=== PATIENT | female | born 1960 | race Two or more races ===

== ENCOUNTER 2017-09-23 07:13 | Outpatient (CLI) | payer OTHER | END 2017-09-23 08:57 | disposition HB | LOC: LAB 07:13 → MAMO-SONO 07:45 → LAB 08:57 | DX: D64.89 Other specified anemias (principal); E11.9 Type 2 diabetes mellitus without complications; E78.2 Mixed hyperlipidemia; K76.89 Other specified diseases of liver; E03.8 Other specified hypothyroidism; E55.9 Vitamin D deficiency, unspecified; R29.898 Other symptoms and signs involving the musculoskeletal system ==

== ENCOUNTER 2017-09-23 08:44 | Outpatient (CLI) | payer OTHER | END 2017-09-23 08:54 | disposition home or self-care (01) | LOC: MAMO-SONO 08:44 | DX: Z12.31 Encounter for screening mammogram for malignant neoplasm of breast (principal); N63.11 Unspecified lump in the right breast, upper outer quadrant ==

== ENCOUNTER 2017-09-26 11:59 | Outpatient (CLI) | payer OTHER | END 2017-09-26 17:00 | disposition home or self-care (01) | LOC: MRI 11:59 | DX: M25.561 Pain in right knee (principal) | CPT/HCPCS: 73721 ==

== ENCOUNTER → 2017-12-22 08:29 | Outpatient (CLI) | payer OTHER | END | disposition home or self-care (01) | LOC: LAB 08:29 | DX: D68.8 Other specified coagulation defects (principal); Z01.812 Encounter for preprocedural laboratory examination; Z13.6 Encounter for screening for cardiovascular disorders; E78.00 Pure hypercholesterolemia, unspecified; E04.8 Other specified nontoxic goiter ==

== ENCOUNTER 2018-04-27 08:47 | Outpatient (CLI) | payer OTHER | END 2018-04-27 09:10 | disposition home or self-care (01) | LOC: LAB 08:47 | DX: D64.89 Other specified anemias (principal); E11.9 Type 2 diabetes mellitus without complications; E78.49 Other hyperlipidemia; K76.89 Other specified diseases of liver; E03.8 Other specified hypothyroidism; E55.9 Vitamin D deficiency, unspecified; R29.898 Other symptoms and signs involving the musculoskeletal system ==

== ENCOUNTER 2018-04-27 11:07 | Outpatient (CLI) | payer OTHER | END 2018-04-27 11:53 | disposition home or self-care (01) | LOC: NUCLEAR 11:07 | DX: M81.0 Age-related osteoporosis without current pathological fracture (principal) ==

== ENCOUNTER 2018-08-19 07:11 | Outpatient (CLI) | payer OTHER | END 2018-08-19 08:24 | disposition home or self-care (01) | LOC: TOM 07:11 | DX: D48.1 Neoplasm of uncertain behavior of connective and other soft tissue (principal) ==

== ENCOUNTER 2019-02-04 08:16 | Outpatient (CLI) | payer OTHER | END 2019-02-04 09:05 | disposition home or self-care (01) | LOC: LAB 08:16 | DX: D64.89 Other specified anemias (principal); E11.9 Type 2 diabetes mellitus without complications; E78.2 Mixed hyperlipidemia; E03.8 Other specified hypothyroidism ==

== ENCOUNTER 2019-04-05 06:39 | Outpatient (CLI) | payer OTHER | END 2019-04-05 07:40 | disposition home or self-care (01) | LOC: LAB 06:39 | DX: E03.8 Other specified hypothyroidism (principal); E07.1 Dyshormogenetic goiter ==

== ENCOUNTER → 2019-04-08 | Outpatient (CLI) | payer OTHER | END | disposition home or self-care (01) | LOC: MAMO-SONO 07:34 | DX: Z12.31 Encounter for screening mammogram for malignant neoplasm of breast (principal); Z87.898 Personal history of other specified conditions ==

== ENCOUNTER 2019-04-16 08:15 | Outpatient (CLI) | payer OTHER | END 2019-04-16 08:29 | disposition home or self-care (01) | LOC: LAB 08:15 | DX: D64.89 Other specified anemias (principal); E03.8 Other specified hypothyroidism; Z12.11 Encounter for screening for malignant neoplasm of colon; N95.1 Menopausal and female climacteric states; I10 Essential (primary) hypertension; C51.8 Malignant neoplasm of overlapping sites of vulva; N30.00 Acute cystitis without hematuria; A64 Unspecified sexually transmitted disease; R97.8 Other abnormal tumor markers; R79.89 Other specified abnormal findings of blood chemistry; E55.9 Vitamin D deficiency, unspecified ==

== ENCOUNTER → 2019-05-04 08:00 | Outpatient (CLI) | payer OTHER | END | disposition home or self-care (01) | LOC: EKG 08:00 | DX: R07.89 Other chest pain (principal) ==

== ENCOUNTER → 2019-06-08 17:11 | Outpatient (CLI) | payer OTHER | END | disposition home or self-care (01) | LOC: LAB 17:11 | DX: R10.10 Upper abdominal pain, unspecified (principal) ==

== ENCOUNTER 2020-04-17 08:09 | Outpatient (CLI) | payer OTHER | END 2020-04-17 08:39 | disposition home or self-care (01) | LOC: LAB 08:09 | PROVIDERS: ATTEND Internal Medicine Sports Medicine | DX: D64.89 Other specified anemias (principal); E11.9 Type 2 diabetes mellitus without complications; E78.2 Mixed hyperlipidemia; I10 Essential (primary) hypertension; E03.8 Other specified hypothyroidism; N30.00 Acute cystitis without hematuria; Z12.11 Encounter for screening for malignant neoplasm of colon; E83.51 Hypocalcemia; N95.8 Other specified menopausal and perimenopausal disorders ==

== ENCOUNTER → 2020-04-18 08:53 | Outpatient (CLI) | payer OTHER | END | disposition home or self-care (01) | LOC: LAB 08:53 | PROVIDERS: ATTEND Obstetrics & Gynecology | DX: E03.8 Other specified hypothyroidism (principal); I10 Essential (primary) hypertension; E78.49 Other hyperlipidemia; N30.00 Acute cystitis without hematuria; E83.51 Hypocalcemia; Z12.11 Encounter for screening for malignant neoplasm of colon; N95.8 Other specified menopausal and perimenopausal disorders ==

== ENCOUNTER → 2020-10-02 07:36 | Outpatient (CLI) | payer OTHER ==
[~2020-10-02 07:36] MED LIST: SYNTHROID150 MCG; [UNRECOGNIZED DRUG - OTHER] PO
== END | disposition home or self-care (01) ==
LOC: LAB 07:36
PROVIDERS: ATTEND Internal Medicine Sports Medicine
DX: D64.89 Other specified anemias (principal); E78.2 Mixed hyperlipidemia; E11.9 Type 2 diabetes mellitus without complications; I10 Essential (primary) hypertension; E03.8 Other specified hypothyroidism

== ENCOUNTER 2020-10-02 11:33 | Outpatient (CLI) | payer OTHER | END 2020-10-02 11:55 | disposition home or self-care (01) | LOC: MAMO-SONO 11:33 | PROVIDERS: ATTEND Obstetrics & Gynecology | DX: N60.11 Diffuse cystic mastopathy of right breast (principal); N60.12 Diffuse cystic mastopathy of left breast ==

== ENCOUNTER 2020-10-02 12:48 | Outpatient (CLI) | payer OTHER | END 2020-10-02 12:50 | disposition home or self-care (01) | LOC: NUCLEAR 12:48 | PROVIDERS: ATTEND Obstetrics & Gynecology | DX: M81.0 Age-related osteoporosis without current pathological fracture (principal) ==

== ENCOUNTER 2020-10-05 10:39 | Emergency (ER) | payer OTHER ==
[~2020-10-05] VITALS: Ht 170.2 cm; Wt 79.4 kg
[2020-10-05] MEDS ORDERED: SYNTHROID150 MCG (10:50)
[2020-10-05] MEDS ORDERED: [UNRECOGNIZED DRUG - OTHER] PO (10:53)
== END 2020-10-05 16:14 | disposition home or self-care (01) ==
LOC: ER 10:39 → CPU-OBS 11:07 → ER 16:14
DX: R07.89 Other chest pain (principal); R42 Dizziness and giddiness
CPT/HCPCS: G0378; G0379; 70450; 93005

== ENCOUNTER 2021-03-19 08:44 | Outpatient (CLI) | payer OTHER | END 2021-03-19 08:51 | disposition home or self-care (01) | LOC: LAB 08:44 | PROVIDERS: ATTEND Internal Medicine Sports Medicine | DX: D64.89 Other specified anemias (principal); E11.9 Type 2 diabetes mellitus without complications; E78.2 Mixed hyperlipidemia; I10 Essential (primary) hypertension; E03.8 Other specified hypothyroidism ==

== ENCOUNTER 2021-10-01 07:56 | Outpatient (CLI) | payer OTHER | END 2021-10-01 08:06 | disposition home or self-care (01) | LOC: LAB 07:56 | PROVIDERS: ATTEND Internal Medicine Sports Medicine | DX: D64.9 Anemia, unspecified (principal); E11.9 Type 2 diabetes mellitus without complications; E78.2 Mixed hyperlipidemia; I10 Essential (primary) hypertension; E03.8 Other specified hypothyroidism ==

== ENCOUNTER 2022-07-22 08:39 | Outpatient (CLI) | payer OTHER | END 2022-07-22 08:49 | disposition home or self-care (01) | LOC: SONOGRAMA 08:39 | PROVIDERS: ATTEND Specialist | DX: R22.2 Localized swelling, mass and lump, trunk (principal) ==

== ENCOUNTER 2023-07-07 08:51 | Outpatient (CLI) | payer OTHER ==
[2023-07-07 09:57] LABS: PH,URINE 5.5 (5.0-8.0); URINE APPEARANCE Clear; URINE BILIRRUBIN Negative (NEGATIVE); URINE BLOOD Negative; URINE COLOR Yellow; URINE GLUCOSE Negative (NEGATIVE); URINE LEUKOCYTE Negative; URINE NITRATE Negative; URINE PROTEIN Negative (NEGATIVE)
[2023-07-07 09:59] LABS: URINE BACTERIA 18.8 uL (0.0-1933); URINE RBC 11.4 uL (0.0-20.8)
[2023-07-07 10:05] LABS: URINE WBC 0.6 uL (0.0-23.2)
[2023-07-07 10:13] LABS: HEMATOCRIT 36.9 % (36.0-45.00); HEMOGLOBIN 12.6 g/dL (12.0-15.00); MEAN CELL VOLUME 89.5 fL (80.00-100.00); MEAN CORPUSCULAR HEMOGLOBIN 30.6 pg (27.00-32.0); MEAN CORPUSCULAR HGB CONC 34.2 g/dl (32.0-36.0); PLATELET COUNT 197 K/uL (150-450); RED BLOOD COUNT 4.12 M/uL (4.00-6.00); RED CELL DISTRIBUTION WIDTH 13.7 % (11.5-14.5)
[2023-07-07 11:03] LABS: BILIRUBIN TOTAL 0.89 mg/dL (0.3-1.2); CALCIUM 9.1 mg/dL (8.5-10.1); CHOL HDL RATIO 4.3 (0-5.0); CREATININE SERUM 0.72 mg/dL (0.55-1.02); GFR 81.55; GLOBULINA 2.8 G/DL (2.4-3.5); POTASSIUM 4.38 mEq/L (3.5-5.1); TOTAL PROTEIN 6.8 gm/dL (6.4-8.2)
[2023-07-07 11:24] LABS: TSH 12.8 uIU/mL (0.358-3.74)
[2023-07-07 11:49] LABS: T3 TOTAL 0.858 ng/ml (0.846-2.02); VITAMIN D3 25 HYDROXY 56.61 ng/ml (30-120)
== END 2023-07-07 09:10 | disposition home or self-care (01) ==
LOC: LAB 08:51
PROVIDERS: ATTEND Specialist
DX: D64.9 Anemia, unspecified (principal); E78.2 Mixed hyperlipidemia; R73.09 Other abnormal glucose; N39.0 Urinary tract infection, site not specified; E11.69 Type 2 diabetes mellitus with other specified complication; Z12.11 Encounter for screening for malignant neoplasm of colon; E55.9 Vitamin D deficiency, unspecified; E03.8 Other specified hypothyroidism

== ENCOUNTER 2023-07-15 08:18 | Outpatient (CLI) | payer OTHER | END 2023-07-15 08:20 | disposition home or self-care (01) | LOC: NUCLEAR 08:18 | PROVIDERS: ATTEND Internal Medicine Sports Medicine | DX: R07.9 Chest pain, unspecified (principal); R00.2 Palpitations ==

== ENCOUNTER → 2024-03-15 06:48 | Outpatient (CLI) | payer OTHER ==
[2024-03-15 07:48] LABS: HEMATOCRIT 37.4 % (36.0-45.00); HEMOGLOBIN 12.9 g/dL (12.0-15.00); MEAN CELL VOLUME 89.9 fL (80.00-100.00); MEAN CORPUSCULAR HGB CONC 34.5 g/dl (32.0-36.0); PLATELET COUNT 211 K/uL (150-450); RED BLOOD COUNT 4.16 M/uL (4.00-6.00); RED CELL DISTRIBUTION WIDTH 12.8 % (11.5-14.5)
[2024-03-15 08:18] LABS: PH,URINE 5.5 (5.0-8.0); URINE APPEARANCE Clear; URINE BILIRRUBIN Negative (NEGATIVE); URINE BLOOD Negative; URINE COLOR Yellow; URINE GLUCOSE Negative (NEGATIVE); URINE KETONE Negative (NEGATIVE); URINE LEUKOCYTE Trace; URINE NITRATE Negative; URINE PROTEIN Negative (NEGATIVE); URINE UROBILINOGEN 0.2 E.U./dl
[2024-03-15 08:19] LABS: URINE BACTERIA 42.8 uL (0.0-1933); URINE EPITHELIAL CELLS 3.8 uL (0.0-38.8); URINE RBC 10.8 uL (0.0-20.8); URINE WBC 3.8 uL (0.0-23.2)
[2024-03-15 08:32] LABS: ALBUMIN 3.9 gm/dL (3.4-5.0); BILIRUBIN TOTAL 0.91 mg/dL (0.3-1.2); CHOL HDL RATIO 3.4 (0-5.0); CREATININE SERUM 0.63 mg/dL (0.55-1.02); GFR 94.84; GLOBULINA 2.8 G/DL (2.4-3.5); POTASSIUM 3.89 mEq/L (3.5-5.1); T4 FREE 1.06 NG/ML (0.76-1.46); TOTAL PROTEIN 6.7 gm/dL (6.4-8.2); TSH 0.458 uIU/mL (0.358-3.74)
== END | disposition home or self-care (01) ==
LOC: LAB 06:48
PROVIDERS: ATTEND Internal Medicine Sports Medicine
DX: E03.9 Hypothyroidism, unspecified (principal)

== ENCOUNTER 2024-07-05 08:35 | Outpatient (CLI) | payer OTHER ==
[2024-07-05 10:22] LABS: URINE APPEARANCE Clear; URINE BILIRRUBIN Negative (NEGATIVE); URINE BLOOD Negative; URINE COLOR Yellow; URINE GLUCOSE Negative (NEGATIVE); URINE KETONE Negative (NEGATIVE); URINE LEUKOCYTE Small; URINE NITRATE Negative; URINE PROTEIN Negative (NEGATIVE)
[2024-07-05 10:26] LABS: URINE BACTERIA 26.9 uL (0.0-1933); URINE EPITHELIAL CELLS 2.2 uL (0.0-38.8); URINE WBC 7.2 uL (0.0-23.2)
[2024-07-05 10:30] LABS: URINE CAST 0.14 uL (0.0-1.40)
[2024-07-05 10:43] LABS: HEMATOCRIT 34.8 % (36.0-45.00); HEMOGLOBIN 11.9 g/dL (12.0-15.00); MEAN CELL VOLUME 89.1 fL (80.00-100.00); MEAN CORPUSCULAR HEMOGLOBIN 30.5 pg (27.00-32.0); MEAN CORPUSCULAR HGB CONC 34.2 g/dl (32.0-36.0); PLATELET COUNT 187 K/uL (150-450); RED CELL DISTRIBUTION WIDTH 13.4 % (11.5-14.5)
[2024-07-05 11:32] LABS: ALBUMIN 3.6 gm/dL (3.4-5.0); BILIRUBIN TOTAL 0.72 mg/dL (0.3-1.2); CALCIUM 8.6 mg/dL (8.5-10.1); CHOL HDL RATIO 3.6 (0-5.0); CREATININE SERUM 0.56 mg/dL (0.55-1.02); GFR 108.64; GLOBULINA 2.9 G/DL (2.4-3.5); POTASSIUM 4.22 mEq/L (3.5-5.1); TOTAL PROTEIN 6.5 gm/dL (6.4-8.2); TSH 0.889 uIU/mL (0.358-3.74)
== END 2024-07-05 08:36 | disposition home or self-care (01) ==
LOC: LAB 08:35
PROVIDERS: ATTEND Internal Medicine
DX: E03.9 Hypothyroidism, unspecified (principal); E78.2 Mixed hyperlipidemia

== ENCOUNTER 2024-07-05 09:34 | Outpatient (CLI) | payer OTHER | END 2024-07-05 09:48 | disposition home or self-care (01) | LOC: RAD 09:34 | PROVIDERS: ATTEND Orthopaedic Surgery | DX: M17.11 Unilateral primary osteoarthritis, right knee (principal) ==

== ENCOUNTER 2025-02-07 06:17 | Outpatient (CLI) | payer OTHER ==
[2025-02-07 07:22] LABS: BASO % 0.5 % (0.1-1.2); EOS # 0.16 (0.04-0.54); EOS % 2.8 % (0.7-7.0); LYMPH # 1.63 (1.18-3.74); LYMPH % 28.1 % (19.3-53.1); MEAN PLATELET VOLUME 11.30 fl (9.4-12.4); MONO # 0.50 (0.24-0.82); MONO % 8.6 % (4.7-12.5); NEUT # 3.47 (1.56-6.13); NEUT % 59.8 % (34.0-71.1); RED CELL DISTRIBUTION WIDTH 13.0 % (11.6-14.4); URINE APPEARANCE Clear; URINE BILIRRUBIN Negative (NEGATIVE); URINE BLOOD Negative; URINE COLOR Yellow; URINE GLUCOSE Negative (NEGATIVE); URINE KETONE Negative (NEGATIVE); URINE LEUKOCYTE Trace; URINE NITRATE Negative; URINE PROTEIN Negative (NEGATIVE); URINE UROBILINOGEN 1.0 E.U./dl
[2025-02-07 07:27] LABS: URINE BACTERIA 7.1 uL (0.0-1933); URINE EPITHELIAL CELLS 1.6 uL (0.0-38.8); URINE RBC 3.9 uL (0.0-20.8); URINE WBC 3.9 uL (0.0-23.2)
[2025-02-07 07:35] LABS: URINE CAST 0.14 uL (0.0-1.40)
[2025-02-07 08:14] LABS: ALT/SGPT 18.0 U/L (12-78); AST/SGOT 13.0 U/L (15-37); BILIRUBIN TOTAL 0.7 mg/dL (0.3-1.2); BUN CREA RATIO 32.0 (7.0-25.0); CHOL HDL RATIO 2.3 (0-5.0); CREATININE SERUM 0.62 mg/dL (0.55-1.02); GFR 96.31; GLOBULINA 2.7 G/DL (2.4-3.5); GLUCOSE FASTING 95.0 mg/dL (65-100); HDL 48.0 mg/dl (40-60); LDL 45.0 mg/dl (0-130); OSMOLALITY SERUM 291.0 MOSM/KG (275-295); T4 FREE 0.98 NG/ML (0.76-1.46); VLDL 16.0 (0-39)
[2025-02-07 08:19] LABS: TSH 0.242 uIU/mL (0.358-3.74)
== END 2025-02-07 06:25 | disposition home or self-care (01) ==
LOC: LAB 06:17
DX: E55.9 Vitamin D deficiency, unspecified (principal); R30.0 Dysuria; E11.9 Type 2 diabetes mellitus without complications; R80.0 Isolated proteinuria; N92.0 Excessive and frequent menstruation with regular cycle; B17.10 Acute hepatitis C without hepatic coma; I10 Essential (primary) hypertension; R10.2 Pelvic and perineal pain; N39.0 Urinary tract infection, site not specified; E03.8 Other specified hypothyroidism; E21.0 Primary hyperparathyroidism; Z12.11 Encounter for screening for malignant neoplasm of colon; E78.1 Pure hyperglyceridemia

== ENCOUNTER 2025-02-07 07:22 | Outpatient (CLI) | payer OTHER | END 2025-02-07 07:33 | disposition home or self-care (01) | LOC: SONOGRAMA 07:22 | DX: R10.2 Pelvic and perineal pain (principal) ==

== ENCOUNTER 2025-02-09 12:50 | Outpatient (CLI) | payer OTHER | END 2025-02-09 12:58 | disposition home or self-care (01) | LOC: MRI 12:50 | PROVIDERS: ATTEND Psychiatry & Neurology Clinical Neurophysiology | DX: G31.84 Mild cognitive impairment of uncertain or unknown etiology (principal) | CPT/HCPCS: 70551 ==

== ENCOUNTER 2025-03-22 11:18 | Outpatient (CLI) | payer OTHER | END 2025-03-22 11:19 | disposition home or self-care (01) | LOC: NUCLEAR 11:18 | DX: M81.0 Age-related osteoporosis without current pathological fracture (principal) ==